=== PATIENT | male | born 1975 | race Caucasian/White ===

== ENCOUNTER 2016-12-04 23:30 | Emergency (ER) | payer BC ==
[2016-12-05] MEDS ORDERED: LORazepam 1 MG Tab PO ONE (00:02)
--- NOTE | 2016-12-05 00:03 | EDM.PDOC ---
ED HPI SEIZURE COMPLAINT - General Chief Complaint: Neurological Problem Stated Complaint: POSSIBLE SEIZURE Time Seen by Provider: 12/04/16 23:50 Source of Information: Reports: Patient, Family (spouse) History Limitations: Reports: No limitations - History of Present Illness INITIAL COMMENTS - FREE TEXT/NARRATIVE: 41-year-old male with a known chronic seizure disorder presents to the ED after having a seizure while sleeping tonight. awoke to hear him moan and groan and then recognized tonic-clonic movements of both arms and both legs symmetrically and the seizure likely lasted a minute or a little longer. Patient was confused and disoriented for about 15 minutes but was unable to get up out of bed and walk on his own volition. He came to the hospital approximate half an hour after the seizure occurred. He did not bite his tongue in this location but did lose control of his bladder. Has not had a seizure since I last seen him in July 04, 2016. He is currently on Keppra 1250 mg twice daily for seizure maintenance. No triggers could be identified on investigation today 2 he'll precipitated seizure. No new medications. No loss of sleep normal job activities Limited alcohol use etc. He did not suffer any injuries because he remained in bed. He has a mild headache at this time but otherwise feels okay.patient states she's very compliant with his medication hasn't missed any doses. Symptom Onset Date: 12/04/16 Symptom Onset Time: 22:50 Timing/Duration: Reports: minutes: Event Occurred (Where): home Event (Witnessed/Unwitnessed): witnessed (while in bedwife) Location: Reports: generalized (tonic-clonic seizure generalized.) Quality: Reports: generalized shaking, unconscious, fixed gaze Severity: moderate Context: Denies: recent ETOH, new/change in medications, missed med dose(s), illness, trauma, photo stimulation, activity/exercise, other Pre Event Symptom(s): Reports: other (patient was asleep when the seizure occurred. This has been typical of his seizures are almost always nocturnal.) Event Symptoms: Reports: incontinence. Denies: tongue biting (of the urinary bladder), syncope, weakness, chest pain, cough, diaphoresis, fever/chills Post Event Symptoms: Reports: confused, lethargic, headache (my), altered speech (dysarthric for a good 10-15 minutes), postictal duration: (but 20 minutes.). Denies: combative Associated Injuries: Reports: other (suffered no injuries has remained in the bed.) Treatments EDUCATIONAL TECHNOLOGY COORDINATOR: Reports: Other (see below) (none) - Related Data Allergies/ADRs: Allergies Allergy/AdvReac Type Severity Reaction Status Date / Time No Known Allergies Allergy Verified 12/04/16 23:40 Home Meds: Home Meds Calcium/Magnesium/Vit D3 [Calcium 500 MG] 2 each PO DAILY 03/26/16 [History] atorvaSTATin [Lipitor] 5 mg PO BEDTIME 03/26/16 [History] levETIRAcetam [Keppra] 1,250 mg PO BID 03/26/16 [History] Melatonin 5 mg PO BEDTIME PRN 12/04/16 [History] LORazepam [Ativan] 1 mg PO ASDIRECTED PRN #10 tablet 12/05/16 [Rx] levETIRAcetam [Keppra] 1,500 mg PO BID #60 tablet 12/05/16 [Rx] Past Medical History Cardiovascular History: Reports: High cholesterol Neurological History: Reports: Seizure - Past Surgical History HEENT Surgical History: Reports: Tonsillectomy Social & Family History - Family History Family Medical History: Noncontributory - Tobacco Use Smoking Status *Q: Current Every Day Smoker Years of Tobacco use: 15 Packs/Tins Daily: 0.5 - Caffeine Use Caffeine Use: Reports: None - Recreational Drug Use Recreational Drug Use: No - Living Situation & Occupation Living situation: Reports: Occupation: employed ED [employer] GENER[employer] - Review of Systems Review Of Systems: See Below Constitutional: Reports: weakness (at present after the seizure.). Denies: fever, chills, malaise, night sweats, diaphoresis, decreased appetite, weight loss, weight gain HEENT: Reports: No symptoms Respiratory: Reports: no symptoms Cardiovascular: Reports: No symptoms Endocrine: Reports: fatigue GI/Abdominal: Reports: No symptoms (feels a little tired.) : Reports: incontinence (lost bladder control during the seizure.) Musculoskeletal: Reports: no symptoms Skin: Reports: no symptoms Neurological: Reports: confusion, headache (back to normal now.). Denies: numbness (mild headache at this time), paresthesia, pre-existing deficit, seizure, syncope, tingling, tremors, trouble speaking, difficulty walking, weakness, change in speech, gait disturbance Psychiatric: Reports: No symptoms Hematologic/Lymphatic: Reports: no symptoms Immunologic: Reports: no symptoms - Physical Exam Exam: See Below Exam Limited By: No limitations General Appearance: alert, WD/WN, no apparent distress, other (answers all questions appropriately.) Eye Exam: bilateral eye: normal fundi, normal inspection, PERRL Ears: normal TMs Throat/Mouth: Normal inspection, Normal lips, Normal oropharynx. No: Evidence of tongue biting Head Exam: atraumatic, normocephalic Neck: normal inspection, supple, non-tender, full range of motion. No: lymphadenopathy (L), lymphadenopathy (R) Respiratory/Chest: no respiratory distress, lungs clear, normal breath sounds, no accessory muscle use, chest non-tender, respiratory distress, other (upper anterior lungs are clear with no evidence of any aspiration.) Cardiovascular: regular rate, rhythm (resting tachycardia of 106 per minute), no edema, no JVD, no murmur, no rub, tachycardia GI/Abdominal: normal bowel sounds, soft, non tender, no organomegaly, no distention Neuro Exam (Abbreviated): alert, oriented, CN II-XII intact, normal cognition. No: normal reflexes DTR: 0: bicep (R), bicep (L), patella (R), achilles (R), 1+: patella (L), achilles (L) Back Exam: normal inspection, full range of motion. No: CVA tenderness (L), CVA tenderness (R) Extremities: normal inspection, normal range of motion, non-tender, no pedal edema, normal capillary refill Psychiatric: normal affect, normal mood Skin Exam: Warm, Dry, Intact, Normal color, No rash Course - Vital Signs Last Recorded V/S: Last Vital Signs Temp 36.2 C 12/04/16 23:37 Pulse 94 12/05/16 00:26 Resp 16 12/05/16 00:26 BP 136/96 H 12/05/16 00:26 Pulse Ox 93 L 12/05/16 00:26 - Orders/Labs/Meds Orders: Active Orders 24 hr Category Date Time Status [facility] Stat Lab 12/05/16 00:02 Ordered Labs: Laboratory Tests 12/04/16 Range/Units 23:48 Sodium 141 (136-145) mEq/L Potassium 3.6 (3.5-5.1) mEq/L Chloride 105 (98-107) mEq/L Carbon Dioxide 26 (21-32) mEq/L Anion Gap 13.6 (5-15) BUN 15 (7-18) mg/dL Creatinine 1.1 (0.7-1.3) mg/dL Est Cr Clr Drug Dosing 81.36 mL/min Estimated GFR (MDRD) > 60 (>60) mL/min BUN/Creatinine Ratio 13.6 L (14-18) Glucose 92 (74-106) mg/dL Calcium 9.0 (8.5-10.1) mg/dL Total Bilirubin 0.4 (0.2-1.0) mg/dL AST 32 (15-37) U/L ALT 79 H (16-63) U/L Alkaline Phosphatase 100 (46-116) U/L Total Protein 7.1 (6.4-8.2) g/dl Albumin 3.9 (3.4-5.0) g/dl Globulin 3.2 gm/dL Albumin/Globulin Ratio 1.2 (1-2) Meds: Medications Discontinued Medications Generic Name Dose Route Start Last Admin Trade Name Freq PRN Reason Stop Dose Admin Lorazepam 1 mg 12/05/16 00:02 12/05/16 00:06 Ativan PO 12/05/16 00:03 1 mg ONETIME ONE Administration - Radiology Interpretation Free Text/Narrative:: 41-year-old male presents the ED in the accompaniment of his . By history he had a seizure while asleep. Most of his seizures have been nocturnal in origin. He's had a seizure disorder for greater than 20 years. He did have a 15 year seizure free interval. Currently on Keppra 1250 mg twice a day for seizure control and hasn't had a seizure since I last seen him July 04 last year. No triggers can be identified to precipitated nocturnal seizure tonight. He did lose control of his bladder. Did not bite his tongue and suffered no injuries. Given Ativan 1 mg by mouth. Labs were drawn and a Keppra level be a send out. Chemistry ordered to make sure liver function is okay. - Re-Assessments/Exams Free Text/Narrative Re-Assessment/Exam: 12/05/16 01:04chemistry is essentially normal. AST was 32 ALT is mildly elevated at 79. Plan increased his Keppra to 1500 mg twice daily. Did give him a prescription for Ativan 10 tablets of the 1 mg strength. May take one tablet after he has a seizure at home and does not necessarily have to attend the ED every time he has a seizure. Of course if the seizures become much more frequent than they had been he needs to attend physician or neurology for probable additional medications to help prevent seizures from occurring. Both patient and advised Departure - Departure Time of Disposition: 00:08 Disposition: Home, Self-Care 01 Condition: fair Clinical Impression: Breakthrough seizure Prescriptions: LORazepam [Ativan] 1 mg PO ASDIRECTED PRN #10 tablet PRN Reason: seizure prevention levETIRAcetam [Keppra] 1,500 mg PO BID #60 tablet Instructions: Seizure, Adult, [id number] Referrals: Tiffanie Boyer [facility] [Primary Care Provider] - Forms: ED Department Discharge Additional Instructions: evaluation in the vision tonight in regards to a breakthrough seizure. Seizures have been very well controlled on current dose of Keppra 1250 mg twice daily with no seizure since July last year when I last seen you for similar illness. This seizure again occurred while asleep. No major injuries occurred because you were in bed. He repeated in the ED with Ativan 1 mg by mouth 2 event further seizure activity over the next 6-8 hours. I would advise increasing her Keppra dose to [address] daily [address] place of the toe 50 mg twice daily. I wrote a prescription in this regard with refills for the next 3 months. Blood drawn for Keppra level which is a send out and the results should be available about 3 days' time. I will call you if the level is already too high and your blood to allow for the increased dose of Keppra. This would be unlikely however. Followup with her neurologist if any further breakthrough seizures occur within the next 3 months. He also wrote a prescription for Ativan 1 mg tablet that you can take after you have a seizure while at home. You do not always have to attend emergency room if you have a breakthrough seizure. If you take the Ativan tablet it will prevent further seizure activity usually over the next 6-8 hours. If seizures start to come much more regularly than of course followup with physician/neurology is required. - My Orders Last 24 Hours: My Active Orders 12/05/16 00:02 [facility] [REF] Stat - Assessment/Plan Last 24 Hours: My Active Orders 12/05/16 00:02 [facility] [REF] Stat
[2016-12-05 00:29] VITALS: BP 136/96
== END 2016-12-05 00:27 | disposition home or self-care (01) ==
LOC: JD.ED 23:30
DX: R56.9 Unspecified convulsions (principal); E78.00 Pure hypercholesterolemia, unspecified; F17.210 Nicotine dependence, cigarettes, uncomplicated; Z98.890 Other specified postprocedural states
CPT/HCPCS: 36415; 80053; 80177; 99284; A9270

== ENCOUNTER 2017-06-07 12:43 | Emergency (ER) | payer BC ==
--- NOTE | 2017-06-07 14:40 | EDM.PDOC ---
ED HPI GENERAL MEDICAL PROBLEM - General Chief Complaint: Neurological Problem Stated Complaint: POSS. SEIZURE Time Seen by Provider: 06/07/17 12:56 Source of Information: Reports: Patient History Limitations: Reports: No Limitations - History of Present Illness INITIAL COMMENTS - FREE TEXT/NARRATIVE: The patient presents with a possible seizure. He has a history of seizures and he is on keppra 1500 BID. Today he was sitting on the couch and he had an aura and then he does not remember anything after that for a few minutes. He has not been getting much sleep lately. He denies any alcohol. He is maxed out on his keppra. His doctor added another medication that he does not remember. He has not started it yet because it is expensive and they are working on some other options. He was under good control from high school with phenytoin but in 2012 something changed and he has had about 6 seizures since then. He denies fever, chills, or cough. Onset: Sudden Duration: Minutes: Location: Reports: Other (Unsure he was out) Improves with: Reports: None Worsens with: Reports: None Associated Symptoms: Reports: No Other Symptoms Headache Pain Score (Numeric/FACES): 5 - Related Data Allergies Allergy/AdvReac Type Severity Reaction Status Date / Time No Known Allergies Allergy Verified 06/07/17 12:53 Home Meds: Home Meds atorvaSTATin [Lipitor] 5 mg PO BEDTIME 03/26/16 [History] LORazepam [Ativan] 1 mg PO ASDIRECTED PRN #10 tablet 12/05/16 [Rx] levETIRAcetam [Keppra] 1,500 mg PO BID #60 tablet 12/05/16 [Rx] LORazepam [Ativan] 1 mg PO Q8HR PRN #20 tablet 06/07/17 [Rx] Lacosamide [Vimpat] 50 mg PO ASDIRECTED 06/07/17 [History] Past Medical History Cardiovascular History: Reports: High Cholesterol Neurological History: Reports: Seizure - Past Surgical History HEENT Surgical History: Reports: Tonsillectomy Social & Family History - Family History Family Medical History: Noncontributory - Tobacco Use Smoking Status *Q: Current Every Day Smoker Years of Tobacco use: 20 Packs/Tins Daily: 0.5 - Caffeine Use Caffeine Use: Reports: None - Recreational Drug Use Recreational Drug Use: No - Living Situation & Occupation Living situation: Reports: Occupation: Employed ED [employer] GENERAL - Review of Systems Review Of Systems: See Below Constitutional: Reports: No Symptoms HEENT: Reports: No Symptoms Respiratory: Reports: No Symptoms Cardiovascular: Reports: No Symptoms Endocrine: Reports: No Symptoms GI/Abdominal: Reports: No Symptoms : Reports: No Symptoms Musculoskeletal: Reports: No Symptoms Skin: Reports: No Symptoms ED EXAM, NEURO - Physical Exam Exam: See Below Exam Limited By: No Limitations General Appearance: Alert, No Apparent Distress Ears: Normal External Exam Nose: Normal Inspection Head Exam: Atraumatic, Normocephalic Neck: Normal Inspection Respiratory/Chest: No Respiratory Distress, Lungs Clear, Normal Breath Sounds Cardiovascular: Regular Rate, Rhythm, No Edema, No Murmur GI/Abdominal: Soft, Non-Tender, No Organomegaly, No Mass Neurological: Alert, No Motor/Sensory Deficits, Oriented x 3 Course - Vital Signs Last Recorded V/S: Last Vital Signs Temp 98.4 F 06/07/17 12:58 Pulse 107 H 06/07/17 12:58 Resp BP 128/94 H 06/07/17 12:58 Pulse Ox 98 06/07/17 12:58 - Orders/Labs/Meds Orders: Active Orders 24 hr Category Date Time Status Cardiac Monitoring [RC] . DIRECTED Care 06/07/17 13:21 Active [facility] [REF] Stat Lab 06/07/17 13:34 Ordered Labs: Laboratory Tests 06/07/17 06/07/17 Range/Units 13:30 13:30 WBC 11.17 H (4.23-9.07) K/mm3 RBC 5.23 (4.63-6.08) M/mm3 Hgb 16.3 (13.7-17.5) gm/L Hct 45.8 (40.1-51.0) % MCV 87.6 (79.0-92.2) fl MCH 31.2 (25.7-32.2) pg MCHC 35.6 H (32.2-35.5) g/dl RDW Std Deviation 40.7 (35.1-43.9) fL Plt Count 183 (163-337) K/mm3 MPV 9.8 (9.4-12.3) fl Neut % (Auto) 78.1 H (34.0-67.9) % Lymph % (Auto) 13.5 L (21.8-53.1) % Island % (Auto) 7.3 (5.3-12.2) % Eos % (Auto) 0.5 L (0.8-7.0) Baso % (Auto) 0.4 (0.1-1.2) % Neut # (Auto) 8.73 H (1.78-5.38) K/mm3 Lymph # (Auto) 1.51 (1.32-3.57) K/mm3 Island # (Auto) 0.81 (0.30-0.82) K/mm3 Eos # (Auto) 0.06 (0.04-0.54) K/mm3 Baso # (Auto) 0.04 (0.01-0.08) K/mm3 Sodium 141 (136-145) mEq/L Potassium 3.5 (3.5-5.1) mEq/L Chloride 106 (98-107) mEq/L Carbon Dioxide 27 (21-32) mEq/L Anion Gap 11.5 (5-15) BUN 17 (7-18) mg/dL Creatinine 1.1 (0.7-1.3) mg/dL Est Cr Clr Drug Dosing 83.46 mL/min Estimated GFR (MDRD) > 60 (>60) mL/min BUN/Creatinine Ratio 15.5 (14-18) Glucose 132 H (74-106) mg/dL Calcium 9.5 (8.5-10.1) mg/dL Magnesium 1.9 (1.8-2.4) mg/dl Total Bilirubin 0.6 (0.2-1.0) mg/dL AST 35 (15-37) U/L ALT 69 H (16-63) U/L Alkaline Phosphatase 97 (46-116) U/L Total Protein 7.4 (6.4-8.2) g/dl Albumin 4.1 (3.4-5.0) g/dl Globulin 3.3 gm/dL Albumin/Globulin Ratio 1.2 (1-2) - Re-Assessments/Exams Free Text/Narrative Re-Assessment/Exam: 06/07/17 14:41 His CBC and CMP look good. I ordered a Keppra level. That will take a few days to get back. The patient is going to follow up with a different neurologist just to get a second opinion. I will have him try taking some ativan at night to help with his sleep. Departure - Departure Time of Disposition: 14:45 Disposition: Home, Self-Care 01 Condition: Good Clinical Impression: Seizure - Discharge Information Prescriptions: LORazepam [Ativan] 1 mg PO Q8HR PRN #20 tablet PRN Reason: Anxiety Referrals: Tiffanie Boyer, [facility] [Primary Care Provider] - Additional Instructions: Take your keppra as prescribed. Try the ativan at night and see if it helps you sleep. Follow up with a neurologist at [facility] for a second opinion. - My Orders Last 24 Hours: My Active Orders 06/07/17 13:21 Cardiac Monitoring [RC] . DIRECTED 06/07/17 13:34 [facility] [REF] Stat - Assessment/Plan Last 24 Hours: My Active Orders 06/07/17 13:21 Cardiac Monitoring [RC] . DIRECTED 06/07/17 13:34 [facility] [REF] Stat
[2017-06-07 15:05] VITALS: BP 129/91
== END 2017-06-07 14:55 | disposition home or self-care (01) ==
LOC: JD.ED 12:43
DX: R56.9 Unspecified convulsions (principal); F17.210 Nicotine dependence, cigarettes, uncomplicated; E78.00 Pure hypercholesterolemia, unspecified; Z98.890 Other specified postprocedural states; Z79.899 Other long term (current) drug therapy
CPT/HCPCS: 36415; 80053; 80177; 83735; 85025; 99283; 99284

== ENCOUNTER 2022-11-27 19:48 | Emergency (ER) | payer BC ==
[2022-11-27 22:36] VITALS: BP 147/88; PULSE 75
== END 2022-11-27 21:29 | disposition home or self-care (01) ==
LOC: JD.ED 19:48
DX: M54.31 Sciatica, right side (principal); R56.9 Unspecified convulsions; Z79.899 Other long term (current) drug therapy
CPT/HCPCS: 99283

== ENCOUNTER 2025-03-24 00:38 | Emergency (ER) | payer BC ==
[2025-03-24 00:59] VITALS: BP 141/75; PULSE 90
[2025-03-24 01:16] LABS: BASOPHILS ABSOLUTE AUTO 0.1 K/mm3 (0.0-0.2); BASOPHILS PERCENT AUTO 0.6 % (0.0-1.0); EOSINOPHILS ABSOLUTE AUTO 1.1 K/mm3 (0.0-0.4); HEMATOCRIT 48.1 % (42.0-52.0); IMMATURE GRAN ABSOLUTE AUTO 0.02 K/mm3 (0.00-0.05); IMMATURE GRAN PERCENT AUTO 0.2 % (0.0-0.4); LYMPHOCYTES ABSOLUTE AUTO 2.9 K/mm3 (1.0-4.8); LYMPHOCYTES PERCENT AUTO 34.7 % (24.0-44.0); MEAN CORPUSCULAR HEMOGLOBIN 30.6 pg (28.0-32.0); MEAN CORPUSCULAR HGB CONC 35.3 g/dl (32.0-36.0); MEAN CORPUSCULAR VOLUME 86.5 fl (83.0-99.0); MEAN PLATELET VOLUME 9.3 fl (9.4-12.4); MONOCYTES ABSOLUTE AUTO 0.6 K/mm3 (0.0-0.8); MONOCYTES PERCENT AUTO 6.7 % (0.0-8.0); NEUTROPHILS ABSOLUTE AUTO 3.8 K/mm3 (1.8-7.7); NEUTROPHILS PERCENT AUTO 44.8 % (41.0-71.0); PLATELET COUNT,PLT 223 K/mm3 (150-400); RED BLOOD CELL COUNT 5.56 M/mm3 (4.52-5.90); WHITE BLOOD CELL COUNT,WBC 8.45 K/mm3 (3.9-11.3)
[2025-03-24 01:17] LABS: APPEARANCE,URINE CLEAR (Clear); BILIRUBIN,URINE NEGATIVE (Negative); COLOR,URINE YELLOW (Yellow); GLUCOSE,URINE NEGATIVE (Negative); KETONES,URINE NEGATIVE (Negative); LEUKOCYTE ESTERASE,URINE NEGATIVE (Negative); NITRITE,URINE NEGATIVE (Negative); OCCULT BLOOD,URINE NEGATIVE (Negative); PROTEIN,URINE TRACE (Negative); UROBILINOGEN,URINE 0.2 (0.2-1.0)
[2025-03-24] MEDS: Iopamidol 612 MG/ML 100 ML Bottle IVPUSH ONE (01:36)
[2025-03-24 01:42] LABS: BACTERIA,URINE FEW /hpf (FEW); EPITHELIAL CELLS,URINE NOT SEEN /hpf (0-5); MUCUS,URINE MODERATE /hpf (FEW); RBC,URINE 0-5 /hpf (0-5); WBC,URINE 0-5 /hpf (0-5)
[2025-03-24 01:46] LABS: A/G RATIO 1.2 (1-2); ALBUMIN 3.9 g/dl (3.4-5.0); ANION GAP 11.9 (5-15); BILIRUBIN TOTAL 0.7 mg/dL (0.2-1.0); BUN/CREATININE RATIO 19.1 (14-18); CALCIUM 9.2 mg/dL (8.5-10.1); CREATININE 1.1 mg/dL (0.7-1.3); EST CRCL DRUG DOSING (CG) 77.62 mL/min; POTASSIUM,K 3.9 mEq/L (3.5-5.1); PROTEIN TOTAL,TP 7.2 g/dl (6.4-8.2)
[2025-03-24] MEDS: Sodium Chloride 0.9% 1,000 ML IV ONE (02:05)
[2025-03-24] MEDS: Ketorolac 15 MG/ML SDV IVPUSH ONE (02:09)
[2025-03-24] MEDS: Sodium Chloride 0.9% 10 ML Syringe FLUSH PRN (02:09)
== END 2025-03-24 04:29 | disposition home or self-care (01) ==
LOC: JD.ED 00:38
DX: K52.89 Other specified noninfective gastroenteritis and colitis (principal); R79.89 Other specified abnormal findings of blood chemistry; Z79.899 Other long term (current) drug therapy
CPT/HCPCS: 36415; 74177; 80053; 81001; 83690; 85025; 96360; 99284; J7030; Q9967